=== PATIENT | male | born 1985 | race American Indian/Alaskan Native ===

== ENCOUNTER 2016-10-04 19:14 | Emergency (ER) | payer SELFPAY ==
[2016-10-04 19:24] VITALS: BP 107/66
== END 2016-10-04 22:51 | disposition left against medical advice (07) ==
LOC: ED 19:14
DX: K08.89 Other specified disorders of teeth and supporting structures (principal); Z53.21 Procedure and treatment not carried out due to patient leaving prior to being seen by health care provider

== ENCOUNTER 2018-06-26 11:54 | Emergency (ER) | payer OTHER ==
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
--- NOTE | 2018-06-26 15:04 | Ultrasound Report ---
PROCEDURE: US TESTICULAR DOPPLER COMP TECHNIQUE: Real-time grewal-scale and color flow Doppler sonography in multiple planes of the scrotum, testicles, and epididymides was performed. Velocity spectral waveform analysis and color Doppler hannah ging of the arterial inflow and venous outflow of the testicles was performed with image documentatio n. HISTORY: testicular pain and swelling COMPARISONS: None currently available. . FINDINGS: RIGHT: TESTICLE: 4.9 x 2.2 x 2.8 cm. Normal echotexture and flow. No distinct lesions.. Right epididymis: Normal size and echotexture. Hydrocele: Large with debris. LEFT: TESTICLE: 6.0 x 2.7 x 2.9 cm. Normal echotexture and flow. No distinct lesions.. Left epididymis: Normal size and echotexture. Hydrocele: Large with debris. IMPRESSION: * Large bilateral hydroceles with debris. Larger on the left than right. * Otherwise, unremarkable testicles and epididymides. This document is electronically signed by Adolph Oleary MD., June 26 2018 03:01:40 PM ET
[2018-06-26 15:05] LABS: Hematocrit 46.4 % (35.5-45.6); Hemoglobin 16.3 gm/dl (11.8-15.2); Mean Corpuscular HGB Conc 35 % (32-34); Mean Corpuscular Volume 96 fl (84-94); Platelet Count 190 K/mm3 (140-440); Red Blood Count 4.83 M/mm3 (3.65-5.03); Red Cell Distribution Width 13.5 % (13.2-15.2)
[2018-06-26 15:31] LABS: BUN/Creatinine Ratio 12; Blood Urea Nitrogen 11 mg/dL (9-20); Calcium 9.6 mg/dL (8.4-10.2); Hemolysis Index 7
[2018-06-26 15:45] VITALS: BP 142/86
== END 2018-06-26 15:45 | disposition home or self-care (01) ==
LOC: ED 11:54
DX: N43.3 Hydrocele, unspecified (principal)
CPT/HCPCS: 36415; 80048; 85027; 93975

== ENCOUNTER 2019-03-12 13:32 | Emergency (ER) | payer OTHER ==
[2019-03-12 14:24] VITALS: BP 109/71
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
--- NOTE | 2019-03-12 15:55 | XRay Report ---
BILATERAL RIBS 5 VIEWS INDICATION / CLINICAL INFORMATION: Rib pain. COMPARISON: None available. FINDINGS: RIBS: No acute, displaced fracture or other acute abnormality. LUNGS: No acute findings. No pneumothorax. Signer Name: Sandeep Aguilar MD Signed: 03/12/2019 3:50 PM Workstation Name: [id number]
--- NOTE | 2019-03-12 16:27 | XRay Report ---
RIGHT SHOULDER, 3 VIEWS INDICATION: right shoulder pain. COMPARISON: None. IMPRESSION: No acute osseous or soft tissue abnormality. No significant DJD. Signer Name: Miles Trevino Jr, MD Signed: 03/12/2019 4:22 PM Workstation Name: [id number]
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
== END 2019-03-12 16:58 | disposition home or self-care (01) ==
LOC: ED 13:32
DX: M25.511 Pain in right shoulder (principal); R07.81 Pleurodynia; F17.200 Nicotine dependence, unspecified, uncomplicated; F12.10 Cannabis abuse, uncomplicated; V89.2XXA Person injured in unspecified motor-vehicle accident, traffic, initial encounter; Y93.89 Activity, other specified; Y92.410 Unspecified street and highway as the place of occurrence of the external cause; Y99.8 Other external cause status
CPT/HCPCS: 71111